=== PATIENT | female | born 1995 | race Native Hawaiian/Other Pacific Islander ===

== ENCOUNTER 2017-05-26 18:22 | Emergency (ER) | payer BC, OTHER ==
[~2017-05-26] VITALS: Ht 167.6 cm; Wt 109.8 kg
== END 2017-05-26 19:30 | disposition home or self-care (01) ==
LOC: ED 18:22
DX: O90.0 Disruption of cesarean delivery wound (principal)
CPT/HCPCS: 87070; 87077; 87185; 87186; 87205; 99282